=== PATIENT | female | born 1935 | race Caucasian/White ===

== ENCOUNTER 2020-10-03 16:38 | Emergency (ER) | payer MEDICARE ==
[~2020-10-03] VITALS: Ht 157.5 cm; Wt 100.0 kg
[2020-10-03 16:49] VITALS: TEMP 98
[2020-10-03 19:20] VITALS: BP 132/59; PULSE 63
== END 2020-10-03 19:25 | disposition home or self-care (01) ==
LOC: COL.ER 16:38
DX: S81.812A Laceration without foreign body, left lower leg, initial encounter (principal); E11.40 Type 2 diabetes mellitus with diabetic neuropathy, unspecified; I10 Essential (primary) hypertension; Z23 Encounter for immunization; W19.XXXA Unspecified fall, initial encounter